=== PATIENT | male | born 1995 | race Caucasian/White ===

== ENCOUNTER 2016-09-16 15:11 | Day surgery (SDC) | payer OTHER ==
[~2016-09-16] VITALS: Ht 185.4 cm; Wt 101.9 kg
--- NOTE | 2016-09-16 17:08 | DIAGNOSTIC IMAGING REPORT ---
PROCEDURE: CT ABD/PELVIS WITH CONTRAST INDICATION: Periumbilical and right abdominal pain. Vomiting. Elevated white blood count (13,600). TECHNIQUE: 125 ml of Isovue 300 were injected intravenously and axial images were obtained of the entire abdomen and pelvis with sagittal and coronal reformations. COMPARISON: None. FINDINGS: ABDOMEN: Gallbladder, liver, spleen, pancreas, kidneys, and aorta are normal. Bowel pattern is normal. PELVIS: There is radiopaque material in a medially located appendix, although little evidence of inflammation. Mild to moderate stool in the sigmoid colon and rectum. Moderate distention of the urinary bladder. No evidence of free fluid. IMPRESSION: 1. Moderate radiopaque material in the appendix which may represent ingested material or small appendicoliths. While there is little evidence of inflammation, occult appendicitis should be considered. 2. Moderate distention of the urinary bladder. 3. Otherwise negative CT abdomen and pelvis. 4. Findings discussed with Dr. Enrico Jarquin. All CT scans at this facility use dose modulation, iterative reconstruction, and/or weight-based dosing when appropriate to reduce radiation dose to as low as reasonably achievable.
--- NOTE | 2016-09-16 18:08 | ED NURSING NOTES ---
Clinical Report - Nurses [facility] [address] [place] [address] 09/16/2016 15:13 Patient: NEVA ACOSTA TRIAGE Triage time 15:46. Acuity: LEVEL 3. Chief Complaint: NAUSEA and VOMITING. 15:46 09/16/16. Alert. No acute distress. ( Pt was seen at . Pt was given IV Fluids and Zofran. Pt was sent here/). SEPSIS SCREEN: Sepsis Screen. Negative (no infection suspected/documented). --15:51 Sandeep Ramirez R.N. 15:46 09/16/16. BP: 116/60. HR: 98. RR: 18. O2 saturation: 98% on room air. Temp: 99.8 F (oral). Pain level now: 8/10. --15:51 Sandeep Ramirez R.N. Weight: 95.2 kg stated. Height/Length: 72 inches Per Patient. BMI: 28.5. --15:47 Sandeep Ramirez R.N. Medications Zoloft Oral 200mg, daily. --15:50 Sandeep Ramirez R.N. Allergies NKDA. --16:27 Sandeep Ramirez R.N. Medication/allergy information source: the patient. --15:51 Sandeep Ramirez R.N. History Arrived by private vehicle. Historian: patient. Accompanied by friend. Primary physician (NONE). This started today. 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 PAST MEDICAL HX: Immunizations: up-to-date. SOCIAL HX: Current every day light tobacco smoker (cigarette)- less than 1/2 a pack per day. Heavy alcohol use; consumes three beers a day. No recent travel. He has had contact with a sick friend. He has not traveled outside the [place] FALL RISK ASSESSMENT: Fall risk assessment completed. No fall risk identified. NUTRITIONAL RISK ASSESSMENT: The nutritional risk assessment revealed no deficiencies. FUNCTIONAL ASSESSMENT: Functional assessment: no impairments noted. LEARNING NEEDS ASSESSMENT: The learning needs assessment revealed no barriers. SKIN INTEGRITY ASSESSMENT: Skin integrity risk assessment completed. No skin integrity risk identified. --15:51 Sandeep Ramirez R.N. PROBLEMS: Depression. --15:51 Sandeep Ramirez R.N. ADDITIONAL SURGERIES: [place] Teeth. --15:51 Sandeep Ramirez R.N. Interventions 15:46 09/16/16. ID and allergy band on patient. To treatment room. --15:51 Sandeep Ramirez R.N. PHYSICAL ASSESSMENT 15:51 09/16/16. To room via wheelchair. GENERAL / NEURO / PSYCH: Alert. Oriented X 4. RESPIRATORY: Respirations not labored. CVS: Capillary refill less than 2 seconds. SKIN: Skin is warm and dry. --15:51 Sandeep Ramirez R.N. NURSING PROGRESS NOTES 15:51 09/16/16. Two patient identifiers checked. Call light placed in reach. Side rails up x 2. Bed placed in lowest position. Brakes of bed on. Brakes of chair on. --15:51 Sandeep Ramirez R.N. 15:51 09/16/16. The plan of care for this patient has been created. Pulse oximeter and NIBP monitor placed on patient; monitor alarms on. Patient gowned. Head of bed elevated. --15:51 Sandeep Ramirez R.N. 15:52 09/16/16. Patient ready for evaluation- chart flagged and notification provided. --15:52 Sandeep Ramirez R.N. 16:00 09/16/2016 Site #1 started via IV in the left antecubital space with an 20g angiocath; one attempt. Blood drawn: rainbow set. Labeled in the presence of the patient and sent to the lab. Saline lock flushed with 10 mL saline. --16:10 Sandeep Ramirez R.N. 16:10 09/16/2016 Started bag #1 1000 mL IV Fluids IV NS (Saline); at 1000 mL/hr over 1 hour(s) via site #1. Allergies verified and confirmed 5 rights. IV patency established. IV site checked: no pain, redness, or swelling. IV flushed thoroughly pre- and post-medication administration. Completed per protocol. --16:10 Sandeep Ramirez R.N. 16:29 09/16/2016 Toradol IVP 30 mg given over 2 minute(s) via site #1. Allergies verified and confirmed 5 rights. IV patency established. IV site checked: no pain, redness, or swelling. IV flushed thoroughly pre- and post-medication administration. IVP given by RN. --16:29 Sandeep Ramirez R.N. 16:30 09/16/2016 PHENERGAN (Promethazine HCl) IVP 25 mg given over 2 minute(s) via site #1. Allergies verified and confirmed 5 rights. IV patency established. IV site checked: no pain, redness, or swelling. IV flushed thoroughly pre- and post-medication administration. IVP given by RN. --16:30 Sandeep Ramirez R.N. 16:30 09/16/16. BP: 117/46. HR: 90. RR: 14. O2 saturation: 99% on room air. --16:31 Sandeep Ramirez R.N. 16:31 09/16/16. --16:31 Sandeep Ramirez R.N. 17:11 09/16/2016 Morphine IVP 4 mg given over 2 minute(s) via site #1. Allergies verified, confirmed 5 rights and sedative warning given to the patient. IV patency established. IV site checked: no pain, redness, or swelling. IV flushed thoroughly pre- and post-medication administration. IVP given by RN. --17:11 Sandeep Ramirez R.N. 17:11 09/16/16. BP: 113/50. HR: 82. RR: 14. O2 saturation: 99% on room air. Temp: 100.9 F (oral). --17:11 Sandeep Ramirez R.N. 17:11 09/16/16. --17:11 Sandeep Ramirez R.N. 17:12 09/16/2016 IV Fluids IV NS Discontinued: bag #1 infused. Total amount infused: 1000 mL. IV patency established. IV site checked: no pain, redness, or swelling. IV flushed thoroughly. --17:12 Sandeep Ramirez R.N. 17:39 09/16/2016 LR * Drip IV 125 mL/hr LR at 125 mL/hr per pre op orders --17:45 Sandeep Ramirez R.N. 17:43 09/16/2016 Started 1 gm of Ertapenem IVPB in bag #1 100 mL; at 100 mL/hr over 45 minute(s) via site #1; Allergies verified and confirmed 5 rights. IV patency established. IV site checked: no pain, redness, or swelling. IV flushed thoroughly pre- and post-medication administration. Completed per protocol. --17:43 Sandeep Ramirez R.N. DISPOSITION / DISCHARGE 17:40 09/16/2016 Site #[address] upon admission; patent (LR at 125 mL/hr, infused 50 mLs, 950 mLs LTC). --17:45 Sandeep Ramirez R.N. 17:46 09/16/16. The goals identified in the patient's plan of care were met. Patient's personal items include, Given to patients friend. FALL RISK ASSESSMENT: Fall risk assessment completed. No fall risk identified. --17:46 Sandeep Ramirez R.N. 17:45 09/16/16. BP: 117/72. HR: 89. RR: 18. O2 saturation: 99%. Temp: 100.2 F (oral). Pain level now: 02/13. --17:46 Sandeep Ramirez R.N. 17:54 09/16/16. Departure time: 17:54. --17:54 Sandeep Ramirez R.N. Report was given to a nurse in person. Report was acknowledged and care was transferred. ([id number]). --18:20 Sandeep Ramirez R.N. Transported via stretcher by nurse with IV ([id number], to OR). --18:20 Sandeep Ramirez R.N. Locked/Released at 09/16/2016 18:21 by Sandeep Ramirez R.N.
--- NOTE | 2016-09-16 18:08 | ED ORDER SUMMARY ---
..... Patient: NEVA ACOSTA OrderSheet [facility] VisitID: [id number] [place] [address] 21y, M Registration Date/Time: 09/16/2016 ORDER SHEET Weight: 95.2 kg (stated) Allergies: NKDA GENERAL ORDERS: CBC w Diff Urgent (16:10 09/16/2016 JBoarmarcusy R.N. per protocol) (Ack 16:11 Johana) (16:29 JBoardley R.N.) CMP Urgent (16:10 09/16/2016 JBoardley R.N. per protocol) (Ack 16:11 Johana) (16:29 JBoardley R.N.) CT Abd/Pel w Cont (No) (21/0.86) Urgent (16:21 09/16/2016 Meredith Parsons) (Ack 16:39 Johana) (16:59 MCampbell) MEDICATION ORDERS: Phenergan IV 25 mg (HIGH ALERT MEDICATION, NOW) (16:21 09/16/2016 Meredith Parsons) (Ack 16:22 Alenadlemally R.N.) (16:30 STASoarmarcusy R.N.) - (LR at 125 mL/hr per pre op orders) (17:44 09/16/2016 Farooq R.N. written order Meredith Parsons) (17:45 JBrosaliay R.N.) IV FLUIDS: IV NS : initial bolus none -, then 1000 mL/hr for X1 (NOW); Routine (16:09 09/16/2016 JBoarmarcusy R.N. per protocol) (16:10 STASoardley R.N.) Toradol IV 30 mg (NOW) (16:21 09/16/2016 Meredith Parsons) (Ack 16:22 STASoardley R.N.) (16:29 JBoardley R.N.) Morphine IV 4 mg (HIGH ALERT MEDICATION, NOW) (17:07 09/16/2016 Meredith Parsons) (17:11 Farooq R.N.) Ertapenem IV 1 gm (NOW) (17:43 09/16/2016 Farooq Crouch written order Meredith Parsons) (17:43 Farooq Crouch) ORDER SHEET NOTES: [Electronically signed by Sandeep Ramirez R.N. (18:21 09/16/2016)] [Electronically signed by Enrico Jarquin Dr. (22:03 09/16/2016)] [Electronically locked/signed by Sandeep Ramirez R.N. (18:21 09/16/2016)]
--- NOTE | 2016-09-16 18:08 | ED ORDER SUMMARY ---
..... Patient: NEVA ACOSTA OrderSheet [facility] VisitID: [id number] [place] [address] 21y, M Registration Date/Time: 09/16/2016 ORDER SHEET Weight: 95.2 kg (stated) Allergies: NKDA GENERAL ORDERS: CBC w Diff Urgent (16:10 09/16/2016 JBoarmarcusy R.N. per protocol) (Ack 16:11 Johana) (16:29 JBoardley R.N.) CMP Urgent (16:10 09/16/2016 JBoardley R.N. per protocol) (Ack 16:11 Johaan) (16:29 JBoardley R.N.) CT Abd/Pel w Cont (No) (21/0.86) Urgent (16:21 09/16/2016 Meredith Parsons) (Ack 16:39 Johana) (16:59 MCampbell) MEDICATION ORDERS: Phenergan IV 25 mg (HIGH ALERT MEDICATION, NOW) (16:21 09/16/2016 Meredith Parsons) (Ack 16:22 Alenadlemally R.N.) (16:30 STASoarmarcusy R.N.) - (LR at 125 mL/hr per pre op orders) (17:44 09/16/2016 Farooq R.N. written order Meredith Parsons) (17:45 JBrosaliay R.N.) IV FLUIDS: IV NS : initial bolus none -, then 1000 mL/hr for X1 (NOW); Routine (16:09 09/16/2016 JBoarmarcusy R.N. per protocol) (16:10 STASoardley R.N.) Toradol IV 30 mg (NOW) (16:21 09/16/2016 Meredith Parsons) (Ack 16:22 STASoardley R.N.) (16:29 JBoardley R.N.) Morphine IV 4 mg (HIGH ALERT MEDICATION, NOW) (17:07 09/16/2016 Meredith Parsons) (17:11 Farooq R.N.) Ertapenem IV 1 gm (NOW) (17:43 09/16/2016 Farooq Crouch written order Meredith Parsons) (17:43 Farooq Crouch) ORDER SHEET NOTES: [Electronically signed by Sandeep Ramirez R.N. (18:21 09/16/2016)] [Electronically signed by Enrico Jarquin Dr. (22:03 09/16/2016)] [Electronically locked/signed by Sandeep Ramirez R.N. (18:21 09/16/2016)]
--- NOTE | 2016-09-16 18:08 | ED NURSING NOTES ---
Clinical Report - Nurses [facility] [address] [place] [address] 09/16/2016 15:13 Patient: NEVA ACOSTA TRIAGE Triage time 15:46. Acuity: LEVEL 3. Chief Complaint: NAUSEA and VOMITING. 15:46 09/16/16. Alert. No acute distress. ( Pt was seen at [facility]. Pt was given IV Fluids and Zofran. Pt was sent here/). SEPSIS SCREEN: Sepsis Screen. Negative (no infection suspected/documented). --15:51 Sandeep Ramirez R.N. 15:46 09/16/16. BP: 116/60. HR: 98. RR: 18. O2 saturation: 98% on room air. Temp: 99.8 F (oral). Pain level now: 8/10. --15:51 Sandeep Ramirez R.N. Weight: 95.2 kg stated. Height/Length: 72 inches Per Patient. BMI: 28.5. --15:47 Sandeep Ramirez R.N. Medications Zoloft Oral 200mg, daily. --15:50 Sandeep Ramirez R.N. Allergies NKDA. --16:27 Sandeep Ramirez R.N. Medication/allergy information source: the patient. --15:51 Sandeep Ramirez R.N. History Arrived by private vehicle. Historian: patient. Accompanied by friend. Primary physician (NONE). This started today. 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 PAST MEDICAL HX: Immunizations: up-to-date. SOCIAL HX: Current every day light tobacco smoker (cigarette)- less than 1/2 a pack per day. Heavy alcohol use; consumes three beers a day. No recent travel. He has had contact with a sick friend. He has not traveled outside the [place] FALL RISK ASSESSMENT: Fall risk assessment completed. No fall risk identified. NUTRITIONAL RISK ASSESSMENT: The nutritional risk assessment revealed no deficiencies. FUNCTIONAL ASSESSMENT: Functional assessment: no impairments noted. LEARNING NEEDS ASSESSMENT: The learning needs assessment revealed no barriers. SKIN INTEGRITY ASSESSMENT: Skin integrity risk assessment completed. No skin integrity risk identified. --15:51 Sandeep Ramirez R.N. PROBLEMS: Depression. --15:51 Sandeep Ramirez R.N. ADDITIONAL SURGERIES: [place] Teeth. --15:51 Sandeep Ramirez R.N. Interventions 15:46 09/16/16. ID and allergy band on patient. To treatment room. --15:51 Sandeep Ramirez R.N. PHYSICAL ASSESSMENT 15:51 09/16/16. To room via wheelchair. GENERAL / NEURO / PSYCH: Alert. Oriented X 4. RESPIRATORY: Respirations not labored. CVS: Capillary refill less than 2 seconds. SKIN: Skin is warm and dry. --15:51 Sandeep Ramirez R.N. NURSING PROGRESS NOTES 15:51 09/16/16. Two patient identifiers checked. Call light placed in reach. Side rails up x 2. Bed placed in lowest position. Brakes of bed on. Brakes of chair on. --15:51 Sandeep Ramirez R.N. 15:51 09/16/16. The plan of care for this patient has been created. Pulse oximeter and NIBP monitor placed on patient; monitor alarms on. Patient gowned. Head of bed elevated. --15:51 Sandeep Ramirez R.N. 15:52 09/16/16. Patient ready for evaluation- chart flagged and notification provided. --15:52 Sandeep Ramirez R.N. 16:00 09/16/2016 Site #1 started via IV in the left antecubital space with an 20g angiocath; one attempt. Blood drawn: rainbow set. Labeled in the presence of the patient and sent to the lab. Saline lock flushed with 10 mL saline. --16:10 Sandeep Ramirez R.N. 16:10 09/16/2016 Started bag #1 1000 mL IV Fluids IV NS (Saline); at 1000 mL/hr over 1 hour(s) via site #1. Allergies verified and confirmed 5 rights. IV patency established. IV site checked: no pain, redness, or swelling. IV flushed thoroughly pre- and post-medication administration. Completed per protocol. --16:10 Sandeep Ramirez R.N. 16:29 09/16/2016 Toradol IVP 30 mg given over 2 minute(s) via site #1. Allergies verified and confirmed 5 rights. IV patency established. IV site checked: no pain, redness, or swelling. IV flushed thoroughly pre- and post-medication administration. IVP given by RN. --16:29 Sandeep Ramirez R.N. 16:30 09/16/2016 PHENERGAN (Promethazine HCl) IVP 25 mg given over 2 minute(s) via site #1. Allergies verified and confirmed 5 rights. IV patency established. IV site checked: no pain, redness, or swelling. IV flushed thoroughly pre- and post-medication administration. IVP given by RN. --16:30 Sandeep Ramirez R.N. 16:30 09/16/16. BP: 117/46. HR: 90. RR: 14. O2 saturation: 99% on room air. --16:31 Sandeep Ramirez R.N. 16:31 09/16/16. --16:31 Sandeep Ramirez R.N. 17:11 09/16/2016 Morphine IVP 4 mg given over 2 minute(s) via site #1. Allergies verified, confirmed 5 rights and sedative warning given to the patient. IV patency established. IV site checked: no pain, redness, or swelling. IV flushed thoroughly pre- and post-medication administration. IVP given by RN. --17:11 Sandeep Ramirez R.N. 17:11 09/16/16. BP: 113/50. HR: 82. RR: 14. O2 saturation: 99% on room air. Temp: 100.9 F (oral). --17:11 Sandeep Ramirez R.N. 17:11 09/16/16. --17:11 Sandeep Ramirez R.N. 17:12 09/16/2016 IV Fluids IV NS Discontinued: bag #1 infused. Total amount infused: 1000 mL. IV patency established. IV site checked: no pain, redness, or swelling. IV flushed thoroughly. --17:12 Sandeep Ramirez R.N. 17:39 09/16/2016 LR * Drip IV 125 mL/hr LR at 125 mL/hr per pre op orders --17:45 Sandeep Ramirez R.N. 17:43 09/16/2016 Started 1 gm of Ertapenem IVPB in bag #1 100 mL; at 100 mL/hr over 45 minute(s) via site #1; Allergies verified and confirmed 5 rights. IV patency established. IV site checked: no pain, redness, or swelling. IV flushed thoroughly pre- and post-medication administration. Completed per protocol. --17:43 Sandeep Ramirez R.N. DISPOSITION / DISCHARGE 17:40 09/16/2016 Site #[address] upon admission; patent (LR at 125 mL/hr, infused 50 mLs, 950 mLs LTC). --17:45 Sandeep Ramirez R.N. 17:46 09/16/16. The goals identified in the patient's plan of care were met. Patient's personal items include, Given to patients friend. FALL RISK ASSESSMENT: Fall risk assessment completed. No fall risk identified. --17:46 Sandeep Ramirez R.N. 17:45 09/16/16. BP: 117/72. HR: 89. RR: 18. O2 saturation: 99%. Temp: 100.2 F (oral). Pain level now: 02/13. --17:46 Sandeep Ramirez R.N. 17:54 09/16/16. Departure time: 17:54. --17:54 Sandeep Ramirez R.N. Report was given to a nurse in person. Report was acknowledged and care was transferred. ([id number]). --18:20 Sandeep Ramirez R.N. Transported via stretcher by nurse with IV ([id number], to OR). --18:20 Sandeep Ramirez R.N. Locked/Released at 09/16/2016 18:21 by Sandeep Ramirez R.N.
--- NOTE | 2016-09-16 18:08 | ED CLINICAL REPORT ---
Clinical Report - Physicians/Mid Levels [facility] [address] [place] [address] 09/16/2016 15:13 Patient: NEVA ACOSTA Arrived- By private vehicle. Historian- patient. HISTORY OF PRESENT ILLNESS Chief Complaint: ABDOMINAL PAIN. At its maximum, severity described as moderate. When seen in the E.D., severity described as moderate. Modifying factors. Not worsened by anything. Not relieved by anything. No radiation. It is described as located in the right lower quadrant and in the periumbilical area. This started today and is still present. It was abrupt in onset. The patient has had nausea, loss of appetite and vomiting. No diarrhea. Similar symptoms previously: None. Recent medical care: The patient was seen recently in a clinic. ( Sent here from . WBC 15k, not able to perform CT due to insurance.). REVIEW OF SYSTEMS No constipation, difficulty with urination, pain with urination, urinary frequency or fever. He has had chills. All systems otherwise negative, except as recorded above. PAST HISTORY Depression. SURGERIES: [place] Teeth. SOCIAL HISTORY Current every day smoker. Regular alcohol use. No drug use. ADDITIONAL NOTES The nursing notes have been reviewed with agreement regarding the chief complaint, PMH and patient medications and allergies. PHYSICAL EXAM Vital Signs: 09/16/2016 15:46 BP: 116/60. HR: 98. RR: 18. O2 saturation: 98%. Temp: 99.8 F. Pain level now: 8/10. Have been reviewed as normal. Appearance: Alert. Oriented X3. Appears to be in pain. Eyes: Eyes normal inspection. ENT: Dry mucous membranes present. CVS: Normal heart rate and rhythm. Heart sounds normal. Respiratory: No respiratory distress. Breath sounds normal. Abdomen: Soft. Moderate tenderness in the right lower quadrant and left lower quadrant with guarding and rebound tenderness present. Positive obturator and psoas sign. Bowel sounds normal. No organomegaly. No mass. Back: Normal inspection. No CVA tenderness. Skin: Normal skin color. No rash. Extremities: No lower extremity edema. Neuro: Oriented X 3. LABS, X-RAYS, AND EKG Abdominal CT: 1. Moderate radiopaque material in the appendix which may represent ingested material or small appendicoliths. While there is little evidence of inflammation, occult appendicitis should be considered. 2. Moderate distention of the urinary bladder. 3. Otherwise negative CT abdomen and pelvis. Study type: abdomen and pelvis. Abdominal CT performed with IV contrast. The study was independently viewed by me, interpreted by the radiologist and discussed with the radiologist. Prior studies were not available for comparison. Laboratory Tests: CBC w Diff: (LEIA: 09/16/2016 16:00) ( MsgRcvd 09/16/2016 16:20) Final results Test Result Flag Units (Reference) WHITE BLOOD COUNT 13.6 H K/uL (4.5-11.5) RED BLOOD COUNT 4.73 M/uL (4.50-5.90) HEMOGLOBIN 14.1 gm/dL (13.5-17.5) HEMATOCRIT 42.1 % (41.0-53.0) MEAN CELL VOLUME 89 fL (80-100) MEAN CORPUSCULAR HGB 30 pg (26-34) MEAN CORPUSCULAR HGB CONC 34 g/dL (31-37) RED CELL DISTRIBUTION WIDTH 13.2 % (11.6-14.8) PLATELET COUNT 207 K/uL (150-400) NEUTROPHIL % 90.5 H % (50-75) LYMPH % 2.6 L % (25-40) MONO % 6.5 % (3-14) EOSINOPHIL % 0.4 % (0-4) BASOPHIL % 0 % (0-2) CMP: (LEIA: 09/16/2016 16:00) ( MsgRcvd 09/16/2016 16:31) Final results Test Result Flag Units (Reference) GLUCOSE 93 mg/dL (70-110) BUN 21 H mg/dL (7-18) CREATININE 1.0 mg/dL (0.6-1.3) Estimated GFR >60 mL/min Estimated GFR- >60 mL/min Note: Persistent reduction over 3 months in eGFR<60 mL/min/1.73 m2 defines CKD. Patients with eGFR values>=60 mL/min/1.73 m2 may also have CKD if evidence ofpersistent proteinuria. Additional information may be foundat www.kidney.org. SODIUM 139 mmol/L (136-145) POTASSIUM 4.0 mmol/L (3.5-5.1) CHLORIDE 104 mmol/L (98-107) CARBON DIOXIDE 25 mmol/L (21-32) CALCIUM 7.9 L mg/dL (8.5-10.1) TOTAL PROTEIN 6.8 g/dL (6.4-8.2) ALBUMIN 3.5 g/dL (3.3-5.0) BILIRUBIN, TOTAL 0.8 mg/dL (0.0-1.0) ALKALINE PHOSPHATASE 66 U/L (46-116) AST (SGOT) 22 U/L (15-37) ALT (SGPT) 27 U/L (12-78) . PROGRESS AND PROCEDURES Discussed case with on-call health care provider, (Dr. Streeter, start appy order set and will take to OR from ER. Will see pt in ER.). Reviewed test results. Health care provider will see patient in ED. CLINICAL IMPRESSION Acute appendicitis. No localized peritonitis, generalized peritonitis, perforation or abscess. INSTRUCTIONS Follow-up: Screening today revealed the patient's blood pressure to be in the normal range. (Electronically signed by Enrico Jarquin Dr. 09/16/2016 22:03)
[2016-09-16] MEDS ORDERED: ZOLOFT50 MG PO (18:09)
--- NOTE | 2016-09-16 19:19 | CONSULTATION REPORT ---
DATE OF CONSULTATION: 09/16/2016 CHIEF COMPLAINT: 1. 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 Jarquin. Repeat white count was 13.6, hemoglobin and hematocrit 14.1 and 42.1, respectively. Sodium 139, potassium 4.0, chloride 104, CO2 25, BUN 21, creatinine 1.0, glucose 93. LFTs normal. The patient states that it hurts whenever he moves around. He points with 1 finger to an area just below the umbilicus approximately 3 fingerbreadths over the most tender. The patient had nausea and vomiting, but no diarrhea, no prior history of abdominal complaints. The patient had a CAT scan ordered by Dr. Jarquin, it was interpreted by Dr. Brewer. The patient was noted to have radiopaque material in a medially located appendix with little evidence of inflammation. Could not rule out occult appendicitis. MEDICAL/SURGICAL HISTORY: Past medical/surgical history: Positive only for wisdom teeth extraction and depression for the last 3 years. MEDICATIONS: 1. Zoloft 200 mg nightly for depression. ALLERGIES: 1. NONE. SOCIAL HISTORY: The patient is . No children. He smokes perhaps 4 cigarettes a day. Drinks perhaps 2 beers per day. Uses marijuana on occasional basis, last time he used marijuana was a day prior to admission. 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 FAMILY HISTORY: Mother is age 48. Father age 59. Both have a history of depression. One brother, 1 sister, alive and well. REVIEW OF SYSTEMS: No history of hepatitis, jaundice, rheumatic fever, blood transfusion, heart murmurs requiring antibiotics or bleeding tendencies. The remaining 12- point review of systems negative. PHYSICAL EXAMINATION: GENERAL: The patient appears to be in [id number] discomfort, apprehensive, conversant. HEENT: Normocephalic, atraumatic. Pupils equal and reactive. External auditory canals clear. No nasal septal defect or discharge. Throat is clear, not injected. Dry mucous membranes. NECK: Supple. No JVD, carotid bruit or adenopathy. LUNGS: Clear. No rales, rhonchi or wheezing. HEART: Regular with no murmurs. ABDOMEN: Nondistended. Hypoactive bowel sounds. The patient has voluntary guarding to palpation in the right lower quadrant. No masses appreciable. No evidence of hernia. EXTREMITIES: Full range of motion. No pretibial or ankle edema. SKIN: Warm and dry with no evident peripheral cyanosis. The patient has extensive tattooing of his upper extremities bilaterally. NEUROLOGIC: The patient is grossly intact with no focal motor neurologic deficits LYMPHATIC: No cervical, supraclavicular or axillary adenopathy. IMPRESSION: 1. Abdominal pain, elevated white count, CT suggestive of occult appendicitis. PLAN: Discussed the findings with the patient. Recommendation to pursue diagnostic laparoscopy, appendectomy. The procedure has been explained to the patient including the potential risks and benefits. The patient understands and agrees to proceed and all questions answered to satisfaction. We will schedule for emergent laparoscopic appendectomy.
--- NOTE | 2016-09-16 20:00 | OPERATIVE REPORT ---
DATE OF SURGERY: 09/16/2016 SURGEON: Cisco Streeter III, MD MICROFILM MACHINE OPERATOR: None. PREOPERATIVE DIAGNOSIS: 1. Occult appendicitis POSTOPERATIVE DIAGNOSIS: 1. Fecalith of the appendix PROCEDURE PERFORMED: 1. Laparoscopic appendectomy ANESTHESIA: General endotracheal. ESTIMATED BLOOD LOSS: None. FLUIDS: 1800 mL lactated Ringers. PATHOLOGY SPECIMEN: Appendix. INDICATIONS: The patient is a 21-year-old male with acute onset of right upper suprapubic/right lower quadrant abdominal pain. Initial white count 15.6 thousand. This came down to 13,000. CT of his abdomen performed in the emergency department showed radiopaque material within the appendix, consistent with appendicolith. The appendix was lying just slightly medial. No gross evidence of inflammatory changes. On physical examination, he was very tender in the right lower quadrant/suprapubic region. He was scheduled for diagnostic laparoscopy and appendectomy. SURGICAL FINDINGS: The patient's appendix appeared grossly normal, as did the cecum and terminal ileum, with no evidence of Crohn's disease. No evidence of Meckel's diverticulitis or diverticulum. No evidence of cecitis. There was serous fluid in the pelvis, but no evidence of purulent fluid noted. There is no evidence of mesenteric adenitis, either. SURGICAL TECHNIQUE: The patient was brought to the operating room and placed in the dorsal supine position, where he underwent general endotracheal anesthesia by the anesthesiology department. After proper anesthesia had taken effect, the patient 's abdomen was prepped using Betadine and draped in a sterile fashion. An infraumbilical incision made, carried down through skin and subcutaneous tissue. A Veress needle was inserted through this site, into the abdominal cavity, and after ascertaining its appropriate position with suction irrigation, pneumoperitoneum obtained using CO2 insufflation to approximately 14-15 mmHg pressure. Once this pressure was reached, the Veress needle was removed and replaced with a 10 mm trocar. The trocar was removed, leaving the sleeve behind, through which a laparoscopic video camera was introduced into the abdominal cavity. Under direct visualization, a separate 5 mm trocar was placed in the suprapubic region, a separate 10 mm trocar was placed in the left lower quadrant. Each entered the abdominal cavity under direct visualization. The trocars were removed, leaving the sleeves behind, through which laparoscopic instrumentation was introduced into the abdominal cavity. The appendix was identified. The mesoappendix was taken down using the Thunderbeat. The base of the appendix was clipped in continuity using the Hem-o-Loks. The appendix was then transected between the Hem-o-Loks, and an immediate amount of stool under pressure escaped from the lumen of the appendix. This was suctioned out quickly. The appendix was then placed in a sterile specimen container bag and retrieved from the abdominal cavity. The right lower quadrant and pelvis was irrigated copiously with warm normal saline and antibiotic solution, the irrigant suctioned out. A systematic exploration of the abdominal cavity revealed the aforementioned findings noted. Assuring us of proper hemostasis, the pneumoperitoneum was released. All trocars were removed from the abdominal cavity. All trocar sites approximated using 4-0 subdermal Polysorb and Steri-Strips. A sterile pressure occlusive dressing was placed over each site. The patient tolerated the procedure well, extubated and transferred to the recovery room in stable condition. There were no intraoperative or anesthetic complications.
[2016-09-16 20:13] VITALS: BP 109/36
[2016-09-16 20:30] VITALS: BP 111/42
[2016-09-16 20:48] VITALS: BP 113/46
[2016-09-16 21:00] VITALS: BP 116/56
[2016-09-16 21:32] VITALS: BP 121/48
--- NOTE | 2016-09-16 22:03 | ED DISCHARGE INSTRUCTIONS ---
Patient: NEVA ACOSTA General Instructions [facility] VisitID: [id number] [address] [place] [address] 21y, M Registration Date/Time: 09/16/2016 Acute appendicitis. No localized peritonitis, generalized peritonitis, perforation or abscess. INSTRUCTIONS Follow-up: Screening today revealed the patient's blood pressure to be in the normal range. (Electronically signed by Enrico Jarquin Dr. 09/16/2016 22:03)
--- NOTE | 2016-09-16 22:03 | ED MAR SUMMARY ---
..... Medication Administration Record [facility] [address] [place] [address] Patient: NEVA ACOSTA Visit ID: [id number] 21y, M Weight: 95.2 kg Height/Length: 72 in BMI: 28.5 ALLERGIES: NKDA Start 16:10 09/16/2016 Sandeep Ramirez R.N., Stop 17:12 09/16/2016 Sandeep Ramirez R.N. Medication Administered: IV NS (SALINE), Dose: IV Fluids over 1 hour(s), Rate: 1000 mL/hr, Dispensed: 1000 mL bag, Site: #1 left AC. Medication Ordered: IV NS : initial bolus none -, then 1000 mL/hr for X1 (NOW); Routine. Given 16:29 09/16/2016 Sandeep Ramirez R.N. Medication Administered: TORADOL [IVP], Dose: 30 mg IVP over 2 minute(s), Site: #1 left AC. Medication Ordered: Toradol IV 30 mg (NOW). Given 16:30 09/16/2016 Sandeep Ramirez R.N. Medication Administered: PHENERGAN [IVP] (PROMETHAZINE HCL), Dose: 25 mg IVP over 2 minute(s), Site: #1 left AC. Medication Ordered: Phenergan IV 25 mg (HIGH ALERT MEDICATION, NOW). Given 17:11 09/16/2016 Sandeep Ramirez R.N. Medication Administered: MORPHINE [IVP], Dose: 4 mg IVP over 2 minute(s), Site: #1 left AC. Medication Ordered: Morphine IV 4 mg (HIGH ALERT MEDICATION, NOW). Start 17:39 09/16/2016 Sandeep Ramirez R.N. Medication Administered: LR *, Dose: 125 mL/hr * Drip IV. Medication Ordered: - (LR at 125 mL/hr per pre op orders). Start 17:43 09/16/2016 Sandeep Ramirez R.N. Medication Administered: ERTAPENEM [IVPB], Dose: 1 gm IVPB over 45 minute(s), Rate: 100 mL/hr, Dispensed: 100 mL bag, Site: #1. Medication Ordered: Ertapenem IV 1 gm (NOW).
--- NOTE | 2016-09-16 22:03 | ED MED RECONCILIATION SUMMARY ---
Patient: NEVA ACOSTA Medication Reconciliation Report VisitID: [id number] [address] [place] [address] 21y, M Registration Date/Time: 09/16/2016 Weight: 95.2 kg Height/Length: 72 in. BMI: 28.5 ALLERGIES: NKDA The patient's Home Medications are listed below: THE FOLLOWING MEDICATIONS NEED TO BE RECONCILED: Zoloft Oral 200mg, daily The source(s) of the original Home Medication information: patient The following Medications were given to the patient in the Emergency Department: IV NS IV Fluids bolus 0, then 1000 mL/hr, administered: 09/16/2016 4:10:00 PM Toradol [IVP] IVP 30 mg, administered: 09/16/2016 4:29:00 PM PHENERGAN [IVP] IVP 25 mg, administered: 09/16/2016 4:30:00 PM Morphine [IVP] IVP 4 mg, administered: 09/16/2016 5:11:00 PM Ertapenem [IVPB] IVPB bolus 0, then 1 gm 100 mL/hr, administered: 09/16/2016 5:43:00 PM LR Drip IV bolus 0, then 125 mL/hr, administered: 09/16/2016 5:39:00 PM The following Medications were prescribed to the patient: None.
--- NOTE | 2016-09-16 22:03 | ED MAR SUMMARY ---
..... Medication Administration Record [facility] [address] [place] [address] Patient: NEVA ACOSTA Visit ID: [id number] 21y, M Weight: 95.2 kg Height/Length: 72 in BMI: 28.5 ALLERGIES: NKDA Start 16:10 09/16/2016 Sandeep Ramirez R.N., Stop 17:12 09/16/2016 Sandeep Ramirez R.N. Medication Administered: IV NS (SALINE), Dose: IV Fluids over 1 hour(s), Rate: 1000 mL/hr, Dispensed: 1000 mL bag, Site: #1 left AC. Medication Ordered: IV NS : initial bolus none -, then 1000 mL/hr for X1 (NOW); Routine. Given 16:29 09/16/2016 Sandeep Ramirez R.N. Medication Administered: TORADOL [IVP], Dose: 30 mg IVP over 2 minute(s), Site: #1 left AC. Medication Ordered: Toradol IV 30 mg (NOW). Given 16:30 09/16/2016 Sandeep Ramirez R.N. Medication Administered: PHENERGAN [IVP] (PROMETHAZINE HCL), Dose: 25 mg IVP over 2 minute(s), Site: #1 left AC. Medication Ordered: Phenergan IV 25 mg (HIGH ALERT MEDICATION, NOW). Given 17:11 09/16/2016 Sandeep Ramirez R.N. Medication Administered: MORPHINE [IVP], Dose: 4 mg IVP over 2 minute(s), Site: #1 left AC. Medication Ordered: Morphine IV 4 mg (HIGH ALERT MEDICATION, NOW). Start 17:39 09/16/2016 Sandeep Ramirez R.N. Medication Administered: LR *, Dose: 125 mL/hr * Drip IV. Medication Ordered: - (LR at 125 mL/hr per pre op orders). Start 17:43 09/16/2016 Sandeep Ramirez R.N. Medication Administered: ERTAPENEM [IVPB], Dose: 1 gm IVPB over 45 minute(s), Rate: 100 mL/hr, Dispensed: 100 mL bag, Site: #1. Medication Ordered: Ertapenem IV 1 gm (NOW).
--- NOTE | 2016-09-16 22:03 | ED MED RECONCILIATION SUMMARY ---
Patient: NEVA ACOSTA Medication Reconciliation Report [facility] VisitID: [id number] [address] [place] [address] 21y, M Registration Date/Time: 09/16/2016 Weight: 95.2 kg Height/Length: 72 in. BMI: 28.5 ALLERGIES: NKDA The patient's Home Medications are listed below: THE FOLLOWING MEDICATIONS NEED TO BE RECONCILED: Zoloft Oral 200mg, daily The source(s) of the original Home Medication information: patient The following Medications were given to the patient in the Emergency Department: IV NS IV Fluids bolus 0, then 1000 mL/hr, administered: 09/16/2016 4:10:00 PM Toradol [IVP] IVP 30 mg, administered: 09/16/2016 4:29:00 PM PHENERGAN [IVP] IVP 25 mg, administered: 09/16/2016 4:30:00 PM Morphine [IVP] IVP 4 mg, administered: 09/16/2016 5:11:00 PM Ertapenem [IVPB] IVPB bolus 0, then 1 gm 100 mL/hr, administered: 09/16/2016 5:43:00 PM LR Drip IV bolus 0, then 125 mL/hr, administered: 09/16/2016 5:39:00 PM The following Medications were prescribed to the patient: None.
--- NOTE | 2016-09-16 22:03 | ED DISCHARGE INSTRUCTIONS ---
Patient: NEVA ACOSTA General Instructions [facility] VisitID: [id number] [address] [place] [address] 21y, M Registration Date/Time: 09/16/2016 Acute appendicitis. No localized peritonitis, generalized peritonitis, perforation or abscess. INSTRUCTIONS Follow-up: Screening today revealed the patient's blood pressure to be in the normal range. (Electronically signed by Enrico Jarquin Dr. 09/16/2016 22:03)
[2016-09-16 22:21] VITALS: BP 119/40
[2016-09-17 00:17] VITALS: BP 114/57
[2016-09-17 03:02] VITALS: BP 117/55
[2016-09-17 06:42] VITALS: BP 114/58
[2016-09-17 11:09] VITALS: BP 134/66
[2016-09-17] MEDS ORDERED: HYCET1 ML PO (12:42)
--- NOTE | 2016-09-17 12:43 | Provider's Discharge Care Plan ---
Problem, Goal, Plan Problem List 1. S/P LAPROSCOPIC APPENDECTOMY Goals: Improve disease control, Therapeutic intervention Instructions: Follow up as directed, Take meds as directed
--- NOTE | 2016-09-17 12:43 | Provider's Discharge Care Plan ---
Problem, Goal, Plan Problem List 1. S/P LAPROSCOPIC APPENDECTOMY Goals: Improve disease control, Therapeutic intervention Instructions: Follow up as directed, Take meds as directed
== END 2016-09-17 14:00 | disposition home or self-care (01) ==
LOC: ED SRH 15:11 → SDC SRH 17:52 → TRANS SRH 17:52 → CC SRH 17:52 → SDC SRH 09-17 14:00
PROVIDERS: Specialist
PROC: 0DTJ4ZZ Resection of Appendix, Percutaneous Endoscopic Approach (ICD-10-PCS; principal; 2016-09-16 18:15)
DX: K38.1 Appendicular concretions (principal); K56.69 Other intestinal obstruction